=== PATIENT | female | born 1965 | race Two or more races ===

== ENCOUNTER → 2017-02-14 | Outpatient (CLI) | payer OTHER ==
[~2017-02-14] MED LIST: FLOMAX0.4 M1 PO; NO MEDICATIONS; PERCOCET 5-3251 TAB PO; PYRIDIUM PO; ZYRTEC10 M1 PO
--- NOTE | ~2017-02-14 | XA51 ---
[facility] A Service [facility] RADIOLOGY TEXT RESULTS PATIENT: ANGEL RAZO LOCATION: [facility] : 67 UNIT #: [id number] AGE: [address]: Armani Pereira MD SEX: F ORDER DR: [id number] [facility]. [place], [place] [address] [id number] O MR#: [id number] [facility] #: [id number] NAME: ANGEL RAZO : 1965 SEX: F STUDY DATE/TIME: 02/14/2017 8:06 UNIT: [facility] ROOM: STUDY DESCRIPTION: KRISTAN BX Bone Marrow Attending Physician: Armani Pereira M.D. Ordering Physician: Armani Pereira M.D. MEDICAL IMAGING REPORT This report is preliminary unless electronic signature is present EXAM Fluoroscopically-guided bone marrow biopsy and aspiration INDICATIONS Elevated white blood cell count. The fluoroscopy time is 0.9 minutes. The reference air kerma is 159 mGy. Medications administered, 3 mg of IV Versed and 100 mcg of IV Fentanyl. Conscious sedation time of 30 minutes was monitored by appropriately credentialed radiology nursing staff. The risks, benefits, and alternatives of the procedure were discussed with the patient and informed consent was obtained. In the procedure room, a time out was performed confirming correct patient and procedure. All elements of maximum sterile-barrier technique utilized according to guidelines appropriate for the procedure. TECHNIQUE/FINDINGS Patient was placed in the prone position on the fluoroscopy table. Skin overlying the posterior right iliac crest was prepped and draped in the usual sterile fashion. 1% lidocaine utilized to anesthetize the skin and underlying subcutaneous tissues. Next under fluoroscopic guidance, an 11-gauge OnControl access needle was advanced into the marrow space and a bone marrow aspirate followed by core biopsy was obtained and sample sent to pathology. The needle was removed and a sterile dressing was applied. No immediate complications. IMPRESSION Technically successful fluoroscopically-guided bone marrow biopsy and aspiration. [facility] A Service [facility] RADIOLOGY TEXT RESULTS PATIENT: ANGEL RAZO LOCATION: [facility] #: [id number] : [birth year] UNIT #: [id number] AGE: [address]: Armani Pereira MD SEX: F ORDER DR: Dictated by... Irvin Bazan M.D. THIS IS AN ELECTRONICALLY VERIFIED REPORT Irvin Bazan M.D. at 02/15/2017 9:50 AM ARS/pcl TD: 02/14/2017 21:05 JOB #: [id number] MEDICAL IMAGING REPORT Page 1 of 1 COPY
[2017-02-14 07:01] LABS: HEMATOCRIT 40.4 % (35.0-45.0); HEMOGLOBIN 13.1 gm/dL (12.0-16.0); MEAN CELL VOLUME 82.3 FL (83-96); MEAN CORPUSCULAR HEMOGLOBIN 26.7 PG (28-34); MEAN CORPUSCULAR HGB CONC 32.5 g/dL (30-36); MEAN PLATELET VOLUME 8.2 FL (6.5-11.5); RED BLOOD COUNT 4.91 X10e (3.90-5.30); WHITE BLOOD COUNT 12.8 X10e3 (4.0-10.5)
[2017-02-14 07:19] LABS: INR 0.9; PARTIAL THROMBOPLASTIN TIME 27.1 SECONDS (23.5-31.3); PROTHROMBIN TIME (PATIENT) 9.9 SECONDS (9.6-11.5)
== END | disposition home or self-care (01) ==
LOC: CIVR 06:27
PROVIDERS: Internal Medicine Medical Oncology
DX: D72.829 Elevated white blood cell count, unspecified (principal); J45.909 Unspecified asthma, uncomplicated
CPT/HCPCS: 38221; G0364; 36415; 77002; 85027; 85610; 85730; 88305; 88311; 99144; 99152; 99153; J2250; J2405; J3010